=== PATIENT | male | born 1970 | race Caucasian/White ===

== ENCOUNTER 2016-05-05 05:56 | Day surgery (SDC) | payer BC ==
[2016-05-05] MEDS ORDERED: LACTATED RINGERS 1,000 ML ONE (06:11)
[2016-05-05] MEDS ORDERED: PROPOFOL 200 MG/20 ML VIAL IV ONE (07:00)
[2016-05-05 08:41] VITALS: BP 114/79; TEMP 97.8; O2SAT 99
--- NOTE | 2016-05-05 10:58 | OP ---
DATE OF PROCEDURE: 05/05/16 PREOPERATIVE DIAGNOSIS: 1. Left lower quadrant abdominal pain. 2. Altered bowel habits. 3. Chronic constipation that has recently worsened. POSTOPERATIVE DIAGNOSIS: 1. Rectal polyp. 2. Long and redundant sigmoid colon. 3. Chronic constipation, probably secondary to irritable bowel syndrome. PROCEDURE: 1. Colonoscopy with polypectomy. SURGEON: Mike Morgan MD. ANESTHESIA: MAC by Jose Miguel Ayala CRNA. ESTIMATED BLOOD LOSS: Less than 2 mL. COMPLICATIONS: None apparent. TECHNIQUE: After informed consent was obtained from the patient, the patient was taken to the Endoscopy Suite and put in the left lateral decubitus position. After adequate IV sedation was obtained, a digital rectal exam was performed. The patient was noted to have some external hemorrhoidal tags. Sphincter tone was slightly decreased. There were no intraluminal masses. The prostate was smooth, 1+ and anodular. The colonoscope was then passed with good visualization through the colon. The sigmoid was extremely redundant to hard to navigate. The bowel prep was good. The cecum was eventually reached and identified by the presence of ileocecal valve and appendiceal orifice. The scope was then withdrawn slowly over the next 10 minutes and a good look at the entire colonic mucosa was obtained. There were no diverticula or vascular lesions noted. There was one sessile polyp found at 15 cm in the rectum. This was removed with the cold snare and retrieved for pathology. There was good hemostasis. The scope was retroflexed in the rectum and mild internal hemorrhoids were noted. The scope was removed. The patient was transported to the outpatient area in good condition. He will followup with me in one month. I am going to put him on [employer] in the meantime. #[id number] [facility]
== END 2016-05-05 08:42 | disposition home or self-care (01) ==
LOC: AMB 05:56
PROVIDERS: ATTEND Family Medicine
DX: R10.32 Left lower quadrant pain (principal); D12.8 Benign neoplasm of rectum; K64.8 Other hemorrhoids; K59.01 Slow transit constipation; R19.5 Other fecal abnormalities; F17.290 Nicotine dependence, other tobacco product, uncomplicated; Z88.0 Allergy status to penicillin; Z79.899 Other long term (current) drug therapy
CPT/HCPCS: 00810; 45385; J3490; J7120